=== PATIENT | female | born 1945 | race Caucasian/White ===

== ENCOUNTER 2016-10-16 09:15 | Inpatient (IN) | payer OTHER, BC ==
[2017-01-15] MEDS ORDERED: ROPIVACAINE 0.2% 80 MG, EPINEPHrine 0.2 MG, KETOROLAC TROMETHAMINE 30 MG in BAG 0 ML IU ONE (06:00)
[2017-01-15] MEDS ORDERED: TRANEXAMIC ACID 3,000 MG in NS 50 ML IRR ONE (06:00)
[2017-01-15] MEDS ORDERED: TRANEXAMIC ACID 3,000 MG/50 ML BAG IRR ONE (07:53)
[2017-01-15] MEDS ORDERED: LR 1,000 ML IV ONE (09:46)
[2017-01-15] MEDS ORDERED: LIDOCAINE 1% 2 ML INJ ID PRN (09:46)
[2017-01-15] MEDS ORDERED: ACETAMINOPHEN 325 MG TAB ONE (09:54)
[2017-01-15] MEDS ORDERED: CEFAZOLIN 2 GM/DEXTROSE/100 ML BAG IV ONE (09:54)
[2017-01-15] MEDS ORDERED: DEXAMETHASONE 4 MG/ML VIAL ONE (09:54)
[2017-01-15] MEDS ORDERED: FAMOTIDINE 20 MG TAB ONE (09:54)
--- NOTE | 2017-01-15 10:14 | PDANEPAE ---
ANE History of Present Illness 71 yo F w OA here for L MOON ANE Past Medical History - Cardiovascular History Hx Hypertension: Yes Hx Arrhythmias: No Hx Chest Pain: No Hx Coronary Artery / Peripheral Vascular Disease: No Hx CHF / Valvular Disease: No Hx Palpitations: No - Pulmonary History Hx COPD: No Hx Asthma/Reactive Airway Disease: No Hx Recent Upper Respiratory Infection: No Hx Oxygen in Use at Home: No Hx Sleep Apnea: Yes Sleep Apnea Screening Result - Last Documented: Positive Pulmonary History Comment: mild VARSHA dx recently- will start CPAP 01-01-17. - Neurologic History Hx Cerebrovascular Accident: No Hx Seizures: No Hx Dementia: No - Endocrine History Hx Diabetes: No - Renal History Hx Renal Disorders: No - Liver History Hx Hepatic Disorders: No - Neurological & Psychiatric Hx Hx Neurological and Psychiatric Disorders: No - Cancer History Hx Cancer: No - Congenital Disorder History Hx Congenital Disorders: No - GI History Hx Gastrointestinal Disorders: Yes Gastrointestinal History Comment: GERD; takes Nexium 2x/mo - Other Health History Other Health History: OA painful L hip. glaucoma-on RX. heel pain - bilat ft. - Chronic Pain History Chronic Pain: Yes (L hip) - Surgical History Prior Surgeries: R total hip 05-22-16. HYSTERECTOMY 1987 ANE Review of Systems - Exercise capacity METS (RN): 4 METS ANE Patient History - Allergies Allergies/Adverse Reactions: No Known Allergies Allergy (Verified 12/30/16 15:15) - Home Medications Home Medications: Herbals/Supplements -Info Only 1 ea PO DAILY 05/03/16 [Last Taken 01/05/17] Lisinopril [Zestril 20 mg (*)] 20 mg PO DAILY 05/03/16 [Last Taken 01/13/17] Multivitamins [Multivitamin (*)] 1 each PO DAILY 05/03/16 [Last Taken 01/05/17] Travoprost Z 0.004% [Travatan Z 0.004% (*)] 1 drops EACHEYE BID 05/03/16 [Last Taken 01/13/17] Cholecalciferol Vit D3 [Vitamin D3 (*)] 3,000 units PO DAILY 12/16/16 [Last Taken 01/05/17] Estrogens,Conjugated [Premarin 0.625 MG (*)] 0.625 mg PO DAILY 12/16/16 [Last Taken 01/05/17] - NPO status NPO Since - Liquids (Date): 01/15/17 NPO Since - Liquids (Time): 07:00 NPO Since - Solids (Date): 01/14/17 NPO Since - Solids (Time): 20:00 - Anes Hx Anes Hx: no prior problems - Smoking Hx Smoking Status: Never smoked - Alcohol Use Alcohol Use: Rarely - Family Anes Hx Family Anes Hx: none ANE Labs/Vital Signs - Vital Signs Blood Pressure: 134/81 Heart Rate: 81 Respiratory Rate: 20 O2 Sat (%): 94 Height: 163.83 cm Weight: 81.647 kg ANE Physical Exam - Airway Neck exam: FROM Mallampati Score: Class 4 Mouth exam: normal dental/mouth exam - Pulmonary Pulmonary: clear to auscultation - Cardiovascular Cardiovascular: regular rate and rhythym - ASA Status ASA Status: II ANE Anesthesia Plan Anesthesia Plan: GA with mask, spinal
[2017-01-15] MEDS ORDERED: MIDAZOLAM 2 MG/2 ML VIAL IVP ONE (10:15)
[2017-01-15] MEDS ORDERED: PROPOFOL/EMULSION 500 MG/50 ML BOTTLE IV ONE ×2 (10:52→12:19)
[2017-01-15] MEDS ORDERED: LIDOCAINE 2% JELLY 5 ML TUBE ONE (11:22)
--- NOTE | 2017-01-15 11:40 | PDHPUP ---
History & Physical Update H&P update statement: This history and physical update is based on an assessment of the patient which was completed after admission or registration (within 24 hours), but prior to the surgery/procedure. H&P update: H&P reviewed & patient examined, no change in patient's condition since H&P completed
[2017-01-15] MEDS ORDERED: ACETAMINOPHEN 325 MG TAB PO ONE (12:00)
[2017-01-15] MEDS ORDERED: FAMOTIDINE 20 MG TAB PO ONE (12:00)
[2017-01-15] MEDS ORDERED: DEXAMETHASONE 4 MG/ML VIAL IVP ONE (12:00)
[2017-01-15] MEDS ORDERED: ceFAZolin 2 GM/DEXTROSE 100 ML IV ONE (12:00)
[2017-01-15] MEDS ORDERED: NALOXONE HCL 0.4 MG/ML INJ IVP PRN (12:26)
[2017-01-15] MEDS ORDERED: fentaNYL 100 MCG/2 ML INJ IVP PRN ×2 (12:26)
[2017-01-15] MEDS ORDERED: ONDANSETRON 4 MG/2 ML VIAL IVP PRN ×2 (12:26→12:49)
[2017-01-15] MEDS ORDERED: HYDROmorphONE/DILAUDID 1 MG/ML SYR IVP PRN ×2 (12:26)
[2017-01-15] MEDS ORDERED: diphenhydrAMINE 25 MG CAP PO PRN (12:49)
[2017-01-15] MEDS ORDERED: TEMAZEPAM 15 MG CAP PO PRN (12:49)
[2017-01-15] MEDS ORDERED: PROMETHAZINE HCL 25 MG SUPPR PR PRN (12:49)
[2017-01-15] MEDS ORDERED: DIPHENOXYLATE/ATROPINE LOMOTIL 1 TAB PO PRN (12:49)
[2017-01-15] MEDS ORDERED: BISACODYL 10 MG SUPP PR PRN (12:49)
[2017-01-15] MEDS ORDERED: MAGNESIUM HYDROXIDE 30 ML UDCUP PO PRN (12:49)
[2017-01-15] MEDS ORDERED: CYCLOBENZAPRINE 10 MG TAB PO PRN (12:49)
[2017-01-15] MEDS ORDERED: METOCLOPRAMIDE 10 MG/2 ML VIAL IVP PRN (12:49)
[2017-01-15] MEDS ORDERED: PROMETHAZINE HCL 25 MG/ML INJ IVP PRN (12:49)
[2017-01-15] MEDS ORDERED: LACTULOSE 20 GM/30 ML UDCUP PO PRN (12:49)
[2017-01-15] MEDS ORDERED: POLYETHYLENE GLYCOL 3350 17 GM PKT PO PRN (12:49)
--- NOTE | 2017-01-15 12:49 | POSTOPPROG ---
Post Op Note Date of Operation: 01/15/17 Surgeon: Sophie Reyes Calibration Specialist: dexter candelaria Anesthesiologist: shaq Anesthesia: IV Sedation, Spinal Pre-op Diagnosis: left hip OA Post-op Diagnosis: left hip OA Indication: failed conservative therapies Procedure: L MOON, anterior Inf/Abcess present in the surg proc area at time of surgery?: No EBL: 50-100
[2017-01-15] MEDS ORDERED: LR 1,000 ML IV SCH (13:00)
[2017-01-15] MEDS: ceFAZolin 2 GM/DEXTROSE 100 ML IV SCH ×2 (14:05→22:04)
--- NOTE | 2017-01-15 15:39 | POSTANESTH ---
Post Anesthetic Evaluation Cardiovascular Status: Normal, Stable, Similar to Pre-Op Cond Respiratory Status: Normal, Stable, Similar to Pre-op Cond. Level of Consciousness/Mental Status: Can Participate in Eval, Alert and Oriented Pain Control: Adequate, Prn Tx Ordered Nausea/Vomiting Control: Adequate, Prn Tx Ordered Complications Possibly Related to Anesthesia: None Noted
[2017-01-15] MEDS: ONDANSETRON DISINTEGRATING 4 MG TAB PO PRN (16:31)
[2017-01-15] MEDS: oxyCODONE IR 5 MG TAB PO PRN ×2 (16:31→22:04)
[2017-01-15] MEDS: ACETAMINOPHEN 325 MG TAB PO SCH ×2 (18:08→23:47)
[2017-01-15] MEDS: SENNOSIDES/DOCUSATE SODIUM TAB PO SCH (20:31)
[2017-01-15] MEDS: TRAVOPROST Z 0.004% 2.5 ML OPHT.BTL EACHEYE SCH (20:34)
[2017-01-15] MEDS: FAMOTIDINE 20 MG TAB PO SCH (20:34)
[2017-01-15] MEDS ORDERED: ASPIRIN 325 MG TAB PO SCH (21:00)
[2017-01-16] MEDS: ACETAMINOPHEN 325 MG TAB PO SCH ×2 (04:57→11:41)
[2017-01-16 07:23] VITALS: O2SAT 95
[2017-01-16] MEDS: FAMOTIDINE 20 MG TAB PO SCH (08:11)
[2017-01-16] MEDS: SENNOSIDES/DOCUSATE SODIUM TAB PO SCH (08:11)
[2017-01-16] MEDS: TRAVOPROST Z 0.004% 2.5 ML OPHT.BTL EACHEYE SCH (08:18)
[2017-01-16] MEDS: oxyCODONE IR 5 MG TAB PO PRN ×2 (08:19→12:46)
--- NOTE | 2017-01-16 08:20 | SOAPPROG ---
SOAP Progress Note Assessment/Plan: Assessment: Patient is doing well POD 1 s/p L MOON Pain management: pain is well controlled on oral pain meds. VTE ppx: recommend aspirin daily for 3 weeks, cont GERONIMO and SCDs Anemia: level is expected initially postop. Asymptomatic. Continue to monitor D/c planning: d/c to local SNF today once cleared by PT Plan: 01/16/17 08:19 01/16/17 08:19 Objective: Vital Signs Temp Pulse Resp BP Pulse Ox 36.5 C 96 16 120/69 95 01/16/17 07:18 01/16/17 07:18 01/16/17 07:18 01/16/17 08:12 01/16/17 07:18 Laboratory Results 01/16/17 05:10 01/15/17 01/16/17 01/17/17 05:59 05:59 05:59 Intake Total 1200 Output Total 950 Balance 250 ICD10 Worksheet Patient Problems: Problems Problem Status Onset Chronic Disease Mgmt/Transitional Care Acute Osteoarthritis of right hip Acute
--- NOTE | 2017-01-16 08:24 | PDIAF ---
- Diagnosis Diagnosis: left hip OA Code Status: Full Code - Medication Management Discharge Medications: Medications to Continue on Transfer Herbals/Supplements -Info Only 1 ea PO DAILY 05/03/16 [Last Taken 01/05/17] Lisinopril [Zestril 20 mg (*)] 20 mg PO DAILY 05/03/16 [Last Taken 01/13/17] Multivitamins [Multivitamin (*)] 1 each PO DAILY 05/03/16 [Last Taken 01/05/17] Travoprost Z 0.004% [Travatan Z 0.004% (*)] 1 drops EACHEYE BID 05/03/16 [Last Taken 01/13/17] Cholecalciferol Vit D3 [Vitamin D3 (*)] 3,000 units PO DAILY 12/16/16 [Last Taken 01/05/17] Albuterol [Proventil] 1 - 2 puffs IH DAILY PRN 01/15/17 [Last Taken Unknown] Fluticasone Hfa 110 Mcg [Flovent 110 MCG Hfa MDI (*)] 1 puffs IH DAILY PRN 01/15 [Last Taken Unknown] Acetaminophen [Tylenol 325mg (*)] 650 mg PO Q6HRS #0 tab 01/16/17 [Last Taken Unknown] Aspirin [Aspirin 81mg (*)] 81 mg PO BID #0 tab.chew 01/16/17 [Last Taken Unknown ] Cyclobenzaprine [Flexeril 10 MG (*)] 10 mg PO Q8HRS PRN #0 tab 01/16/17 [Last Taken Unknown] Ondansetron Odt [Zofran Odt 4 mg (*)] 4 mg PO Q4HRS PRN #0 tab 01/16/17 [Last Taken Unknown] Sennosides/Docusate Sodium [Senokot-S] 1 - 2 tab PO BID #0 tab 01/16/17 [Last Taken Unknown] oxyCODONE IR [Oxycodone Ir (*)] 5 - 10 mg PO Q3HRS PRN #0 tab 01/16/17 [Last Taken Unknown] Discharge Medications: Refer to the Discharge Home Medication list for PRN reason. PICC Care - Routine: N/A - Orders Services needed: Physical Therapy (at [facility]) Diet Recommendation: no restrictions on diet Diet Texture: Regular Texture Diet Chauhan: Not applicable Wound Care Instructions: keep clean and dry. Activity/Weight Bearing Restrictions: as tolerated. No active flexion of the hip. - Follow Up Care Current Providers and Referrals: KAMILAH ARGUETA [Primary Care Provider] - Sophie Reyes MD [Medical Doctor] - (follow up in 3 weeks.)
--- NOTE | 2017-01-16 08:47 | GOP ---
Corrected report [f rep st] OPERATIVE REPORT DATE OF OPERATION: 01/15/2017 SURGEON: Eddie Reyes MD CABLE MOCK UP ASSEMBLER: ELLIOT Childress ANESTHESIA: Spinal. PREOPERATIVE DIAGNOSIS: Left hip osteoarthritis. POSTOPERATIVE DIAGNOSIS: Left hip osteoarthritis. PROCEDURE PERFORMED: Left total hip arthroplasty with x-ray. FINDINGS: ESTIMATED BLOOD LOSS: 200 cc. INDICATIONS: The patient has progressively worsening arthritis of the hip which has failed medical management. The patient understands the treatment options including continued non-operative care and has selected surgical intervention. The patient has decided to undergo total hip arthroplasty via the direct anterior approach, understanding the risks of the procedure including , but not limited to, neurovascular injury, infection, persistent pain, component wear and loosening, deep venous thrombosis, pulmonary embolism, limb length inequality, hip instability (including dislocation), and intra-operative fractures. DESCRIPTION OF PROCEDURE: After proper identification of the patient including verification and marking the surgical site, the patient was brought to the operating room and placed in the supine position. All bony prominences were well padded. Anesthesia was induced without complication and intravenous prophylactic antibiotics were administered prior to skin incision. The operative leg was placed in the Trumpf Arch table extension and the well leg in a Yellofin leg montero. The patient was prepped and draped in the usual sterile fashion. The C-arm was draped for intra-operative fluoroscopy to check acetabular position, femoral component position including leg length and femoral offset. Attention was then drawn to surgical exposure of the hip. An incision was made with a #10 Bard Alfonso blade starting 3 cm lateral and 3 cm distal to the anterior superior iliac spine measuring 8-10 cm and coursing distally toward the greater trochanter. The skin and subcutaneous tissues were divided sharply down to the fascia cece. The fascia cece was incised in line with the skin incision exposing the underlying tensor fascia cece muscle. The muscle was bluntly elevated from the fascia and the first extracapsular Cobra retractor was placed laterally at the junction of the superior femoral neck and greater trochanter. The lateral femoral circumflex vessels were identified, cauterized , and divided with the Aquamantys bipolar cautery. The deep investing fascia of the TFL was divided to allow proper mobilization of the muscle preventing damage during the retraction. The reflected head of the rectus femoris muscle was elevated off the anterior hip capsule and a medial Cobra retractor was placed just proximal to the lesser trochanter. The anterior capsulotomy was made sharply from the superolateral acetabulum to the saddle junction of the superior femoral neck and greater trochanter, then coursing inferomedial towards the lesser trochanter. The retractors were then placed in the intracapsular position for femoral neck osteotomy. Corresponding to pre-operative templating, the osteotomy was made with the oscillating saw carefully protecting the greater trochanter and soft tissues. The femoral head was removed from the acetabulum with a corkscrew and confirmed to be severely arthritic with exposed bone, deformity and osteophytes. Similar findings were confirmed in the acetabulum. The Arch table extension was then placed in 40 degrees external rotation. Attention was then drawn to the acetabular preparation. After placement of the anterior and posterior Cobra retractors outside the labrum and intracapsular, the circumferential labrum was removed sharply. The foveal contents were then removed and hemostasis obtained with cautery. The first reamer selected was sized using the removed femoral head. Reaming began with medialization and then commenced in 2 mm increments at 45 degrees of abduction and 15 degrees of anteversion using fluoroscopic navigation. Reaming ceased 1 mm less than the definitive acetabular component and corresponded to the pre-operative templating. The final acetabular component was inserted using fluoroscopy to achieve proper orientation yielding excellent purchase and stability in the acetabulum. The final acetabular liner was then placed and its seating confirmed. Attention was then turned to the femur. The Arch table extension was placed in extension and adduction, delivering the osteotomized femoral neck into the wound. A 2-pronged femoral elevator was placed at the calcar and another at the tip of the greater trochanter. The posterolateral capsule was released with cautery allowing mobilization of the femur lateral and anterior for preparation. The external rotators were visualized and preserved. A curette and rongeur were used to open the starting point for broaching. Serial broaching started with the #0 broach and ended with the broach that exhibited excellent fit in the proximal femur. A change in pitch during mallet strikes was accompanied by the inability to advance the broach any further. The trial reduction was performed and fluoroscopic navigation was utilized to check limb length. Adjustments were made to equalize limb length accordingly. After the final trials were accepted they were removed and the wound was copiously lavaged. The femoral component was seated to the same depth as the final broach and the femoral head was impacted onto the clean trunnion. The hip was then reduced for the final time and once more fluoroscopy was used to check that limb length equality was achieved. The wound was irrigated and closed in layers, the fascia cece with 2-0 Quill, the subcutaneous tissue with 2-0 Quill, and the skin with Dermabond. Sterile dressings were applied. Final sharps and sponge counts were accurate. The patient was then transferred to a hospital bed and brought to the recovery room in stable condition. IMPLANTS: Accolade II, size 4 at 127. Acetabular component 50 mm titanium. The liner is a Trident X3, 32 mm. The head is a Biolox Delta 32 mm +0. Jazmín. hospital administrative assistant from ELLIOT Melchor, to ELLIOT Childress; 01/18/2017 kevin. /[id number]/MODL and [id number]/MODL. MTDD
[2017-01-16] MEDS ORDERED: ASPIRIN 81 MG CHEWABLE TAB PO SCH (09:00)
[2017-01-16] MEDS ORDERED: LISINOPRIL 20 MG TAB PO SCH (09:00)
[2017-01-16] MEDS: ONDANSETRON DISINTEGRATING 4 MG TAB PO PRN (11:44)
[2017-01-16 11:55] VITALS: BP 115/63; PULSE 74; RESP 18; TEMP 97.6
--- NOTE | 2017-01-16 13:41 | PDIAF ---
- Diagnosis Diagnosis: left hip OA Code Status: Full Code - Medication Management Discharge Medications: Medications to Continue on Transfer Herbals/Supplements -Info Only 1 ea PO DAILY 05/03/16 [Last Taken 01/05/17] Lisinopril [Zestril 20 mg (*)] 20 mg PO DAILY 05/03/16 [Last Taken 01/13/17] Multivitamins [Multivitamin (*)] 1 each PO DAILY 05/03/16 [Last Taken 01/05/17] Travoprost Z 0.004% [Travatan Z 0.004% (*)] 1 drops EACHEYE BID 05/03/16 [Last Taken 01/13/17] Cholecalciferol Vit D3 [Vitamin D3 (*)] 3,000 units PO DAILY 12/16/16 [Last Taken 01/05/17] Albuterol [Proventil] 1 - 2 puffs IH DAILY PRN 01/15/17 [Last Taken Unknown] Fluticasone Hfa 110 Mcg [Flovent 110 MCG Hfa MDI (*)] 1 puffs IH DAILY PRN 01/15 [Last Taken Unknown] Acetaminophen [Tylenol 325mg (*)] 650 mg PO Q6HRS #0 tab 01/16/17 [Last Taken Unknown] Aspirin [Aspirin 81mg (*)] 81 mg PO BID #0 tab.chew 01/16/17 [Last Taken Unknown ] Cyclobenzaprine [Flexeril 10 MG (*)] 10 mg PO Q8HRS PRN #0 tab 01/16/17 [Last Taken Unknown] Ondansetron Odt [Zofran Odt 4 mg (*)] 4 mg PO Q4HRS PRN #0 tab 01/16/17 [Last Taken Unknown] Sennosides/Docusate Sodium [Senokot-S] 1 - 2 tab PO BID #0 tab 01/16/17 [Last Taken Unknown] oxyCODONE IR [Oxycodone Ir (*)] 5 - 10 mg PO Q3HRS PRN #0 tab 01/16/17 [Last Taken Unknown] Discharge Medications: Refer to the Discharge Home Medication list for PRN reason. PICC Care - Routine: N/A - Orders Services needed: Physical Therapy (at [facility]) Diet Recommendation: no restrictions on diet Diet Texture: Regular Texture Diet Chauhan: Not applicable Wound Care Instructions: keep clean and dry. Activity/Weight Bearing Restrictions: as tolerated. No active flexion of the hip. - Follow Up Care Current Providers and Referrals: Sophie Reyes MD [Medical Doctor] - (follow up in 3 weeks.) KAMILAH ARGUETA [Primary Care Provider] -
--- NOTE | 2017-01-17 00:59 | GDS ---
[f rep st] DISCHARGE SUMMARY ADMISSION DIAGNOSIS: Left hip osteoarthritis. DISCHARGE DIAGNOSIS: Left hip osteoarthritis. PROCEDURE: A left total hip arthroplasty. BRIEF DESCRIPTION OF HOSPITAL STAY: Patient was admitted for an elective joint arthroplasty. The p atient tolerated the procedure well and has passed physical therapy. The patient was given appropri ate antibiotic prophylaxis and venous thromboembolism prophylaxis. The patient's pain was well cont rolled on oral pain medication, patient was holding down food, and had urinated. Decision was made to discharge the patient. The patient was given post-operative prescriptions pre-operatively. VTE PROPHYLAXIS: Full-strength aspirin x21 days. PLAN: The patient will be discharged to a local custodial facility because she lives alone. Please follow up with Dr. Frausto as scheduled in 3 weeks. /[id number]/MODL
== END 2017-01-16 14:18 | DRG 470 ==
LOC: F3N 01-15 09:12
PROVIDERS: ADMIT Orthopaedic Surgery; ATTEND Orthopaedic Surgery
PROC: 0SRB04A Replacement of Left Hip Joint with Ceramic on Polyethylene Synthetic Substitute, Uncemented, Open Approach (ICD-10-PCS; principal; 2017-01-15 11:00)
DX: M16.12 Unilateral primary osteoarthritis, left hip (principal); I10 Essential (primary) hypertension; G47.33 Obstructive sleep apnea (adult) (pediatric); H40.9 Unspecified glaucoma; M85.89 Other specified disorders of bone density and structure, multiple sites; K21.9 Gastro-esophageal reflux disease without esophagitis; Z96.641 Presence of right artificial hip joint
CPT/HCPCS: 97116-GP; 97161-GP; 97165-GO; G8978-GP-CJ; G8979-GP-CI; G8987-GO-CJ; G8988-GO-CI; G8989-GO-CJ; J0171; J0690; J1100; J1885; J2250; J2704; J2795